=== PATIENT | male | born 1950 ===

== ENCOUNTER 2025-04-02 13:20 | Outpatient (AMB) | payer MEDICARE, OTHER, SELFPAY ==
--- OUTSIDE RECORDS SUMMARY | 2025-03-29 07:40 | XMS_ITS | Encounter Summary ---
Author Organization [facility] Address [address] [place] [address] Care Team Providers Care Customer Supply Chain Analyst Name Role Phone Steve Reid Primary Care Provider [phone] Encounter Details Date Type Department Care Team (Late st Contact Info) Description 03/29/2025 7:40 AM EST Lab Draw Station [address] [address] Benign non-nodular prostatic hyperplasia with lower urinary tract symptoms; Stage 3 chronic kidney disease, unspecified whether stage 3a or 3b CKD (CMS/HCC V24, CMS/HCC V28); Essential hypertension; Parkinson's disease without dyskinesia or fluctuating manifestations (CMS/HCC V24, CMS/HCC V28); Other fatigue; Primary insomnia Social History Tobacco Use Types Packs/Day Years Used Date Smoking Tobacco: Never Smokeless Tobacco: Never Alcohol Use Standard Drinks/Week Comments Yes 0 (1 standard drink = 0.6 oz pur e alcohol) Housing Instability Answer Date Recorde d Are you worried that in the next 2 months you may not have stable housing? No 11/08/2024 Food Access & Nutrition Answer Date Rec orded Do you have access to a vari ety of food including fruits and vegetables? Yes 11/08/2024 Access to Healthcare Answer Date Record ed Within the last 3 months, ho w many times did you visit the emergency department for your medical care? 0 11/08/2024 Health Literacy Answer Date Recorded How often do you need to hav e someone help you when you read instructions, pamphlets, or other written material from your doctor or pharmacy? Never 11/08/2024 Caregiver: How often do you need to have someone help you when you read instructions, pamphlets, or other written material from your doctor or pharmacy? Not on file 11/08/2024 Financial Risk Answer Date Recorded How hard is it for you to pa y for the very basics like food, housing, medical care, and air conditioning / heating? Patient declined 11/08/2024 Transportation Answer Date Recorded Has the lack of transportati on kept you from meetings, work, or from getting things needed for daily living? No Has the lack of transportati on kept you from medical appointments or from getting medications? No 11/08/2024 Social Isolation Answer Date Recorded How often do you feel lonely or isolated from th ose around you? Never 11/08/2024 Food Risk Answer Date Recorded Within the past 12 months we worried whether our food would run out before we got money to buy more. Never true 11/08/2024 Within the past 12 months th e food we bought just didn't last and we didn't have money to get more. Never true 11/08/2024 Dependent Care Answer Date Recorded Do you need help finding or paying for care for your loved ones. For example, child welfare worker or elderly care for an older adult? No 11/08/2024 Education Answer Date Recorded Do you think completing more education or training, like finishing a GED, going to college, or learning a trade, would be helpful for you? N/A 11/08/2024 Employment and Income Answer Date Recor ded During the last four weeks, have you been actively looking for work? No 11/08/2024 Living Situation Answer Date Recorded What is your living situation? Unrecognized valu e 11/08/2024 Sex and Gender Information Value Date Recorded Sex Assigned at Not on file Legal Sex Male 7:11 AM EST Gender Identity Not on file Sexual Orientation Not on file documented as of this encounter Plan of Treatment Upcoming Encounters Date Type Department Care Team (Late st Contact Info) Description 04/03/2025 10:45 AM EST Office Visit Adult Medicine [address] [address] Steve Reid PA [address] [place] [address] 03/28/2026 2:30 PM EST Office Visit Nephrology [facility] [place] [facility] [address] [place] [address] Martin England MD [address] [address] documented as of this encounter Procedures Procedure Name Priority Date/Time Associated Diagnosis Comments URINALYSIS WITH REFLEX MICROSCOPIC Routine 03/29/2025 7:46 AM EST Benign non-nodular prostatic hyperplasia with lower urinary tract symptoms Stage 3 chronic kidney disease, unspecified whether stage 3a or 3b CKD (CMS/HCC V24, CMS/HCC V28) Essential hypertension Parkinson's disease without dyskinesia or fluctuating manifestations (CMS/HCC V24, CMS/HCC V28) Other fatigue Primary insomnia THYROID STIMULATING HORMONE WITH REFLEX TO FREE T4 AND FREE T3 Routine 03/29/2025 7:46 AM EST Benign non-nodular prostatic hyperplasia with lower urinary tract symptoms Stage 3 chronic kidney disease, unspecified whether stage 3a or 3b CKD (CMS/HCC V24, CMS/HCC V28) Essential hypertension Parkinson's disease without dyskinesia or fluctuating manifestations (CMS/HCC V24, CMS/HCC V28) Other fatigue Primary insomnia URINALYSIS WITH REFLEX MICROSCOPIC Routine 03/29/2025 7:46 AM EST Benign non-nodular prostatic hyperplasia with lower urinary tract symptoms Stage 3 chronic kidney disease, unspecified whether stage 3a or 3b CKD (CMS/HCC V24, CMS/HCC V28) Essential hypertension Parkinson's disease without dyskinesia or fluctuating manifestations (CMS/HCC V24, CMS/HCC V28) Other fatigue Primary insomnia PROSTATE SPECIFIC ANTIGEN DIAGNOSTIC Routine 03/29/2025 7:46 AM EST Benign non-nodular prostatic hyperplasia with lower urinary tract symptoms Stage 3 chronic kidney disease, unspecified whether stage 3a or 3b CKD (CMS/HCC V24, CMS/HCC V28) Essential hypertension Parkinson's disease without dyskinesia or fluctuating manifestations (CMS/HCC V24, CMS/HCC V28) Other fatigue Primary insomnia CBC WITH AUTO DIFFERENTIAL Routine 03/29/2025 7:46 AM EST Benign non-nodular prostatic hyperplasia with lower urinary tract symptoms Stage 3 chronic kidney disease, unspecified whether stage 3a or 3b CKD ([facility] V24, [facility] V28) Essential hypertension Parkinson's disease without dyskinesia or fluctuating manifestations ([facility] V24, [facility] V28) Other fatigue Primary insomnia CBC AND DIFFERENTIAL Routine 03/29/2025 7:46 AM EST Benign non-nodular prostatic hyperplasia with lower urinary tract symptoms Stage 3 chronic kidney disease, unspecified whether stage 3a or 3b CKD ([facility] V24, [facility] V28) Essential hypertension Parkinson's disease without dyskinesia or fluctuating manifestations ([facility] V24, [facility] V28) Other fatigue Primary insomnia documented in this encounter Results * (ABNORMAL) Urinalysis with reflex microscopic (03/29/2025 7:46 AM EST) Specific [place] Urine 1.020 1.003 - 1.030 LAB URINALYSIS - AUTOMATED METHOD 03/29/2025 10:20 AM [facility] pH, Urine 5.5 5.0 - 8.0 pH LAB URINALYSIS - AUTOMATED METHOD 03/29/2025 10:20 AM [facility] Leukocytes, Urine Negative Negative LAB URINALYSIS - AUTOMATED METHOD 03/29/2025 10:20 AM [facility] Nitrite, Urine Negative Negative LAB URINALYSIS - AUTOMATED METHOD 03/29/2025 10:20 AM [facility] Protein, Urine Negative <=Trace mg/dL LAB URINALYSIS - AUTOMATED METHOD 03/29/2025 10:20 AM [facility] Glucose, Urine Negative Negative mg/dL LAB URINALYSIS - AUTOMATED METHOD 03/29/2025 10:20 AM [facility] Ketones, Urine Trace(A) Negative mg/dL LAB URINALYSIS - AUTOMATED METHOD 03/29/2025 10:20 AM [facility] Urobilinogen, Urine 0.2 0.2 - 1.0 mg/dL LAB URINALYSIS - AUTOMATED METHOD 03/29/2025 10:20 AM [facility] Bilirubin, Urine Negative Negative LAB URINALYSIS - AUTOMATED METHOD 03/29/2025 10:20 AM [facility] Blood, Urine Negative Negative LAB URINALYSIS - AUTOMATED METHOD 03/29/2025 10:20 AM [facility] Urine Urine specimen obtained by clean catch procedure / Unknown Non-blood Collection / Unknown 03/29/2025 7:46 AM EST 03/29/2025 7:46 AM EST Steve ZAVALA LAB URINE ORDERABLES Lucinda ferreira Result [facility] [address] [place] [address], * (ABNORMAL) CBC auto differential (03/29/2025 7:46 AM EST) WBC 10.3 4.8 - 10.8 K/mcL LAB HEMETOLOGY METHOD 03/29/2025 10:29 AM [facility] RBC 4.90 4.50 - 5.50 M/[facility] LAB HEMETOLOGY METHOD 03/29/2025 10:29 AM [facility] Hemoglobin 14.4 13.5 - 17.5 g/dL LAB HEMETOLOGY METHOD 03/29/2025 10:29 AM [facility] Hematocrit 45.4 42.0 - 54.0 % LAB HEMETOLOGY METHOD 03/29/2025 10:29 AM [facility] MCV 91.9 79.0 - 98.0 FL LAB HEMETOLOGY METHOD 03/29/2025 10:29 AM [facility] MCH 29.1 27.0 - 32.0 pcg LAB HEMETOLOGY METHOD 03/29/2025 10:29 AM [facility] MCHC 31.7(L) 32.0 - 37.0 g/dL LAB HEMETOLOGY METHOD 03/29/2025 10:29 AM [facility] RDW 13.5 11.0 - 15.0 % LAB HEMETOLOGY METHOD 03/29/2025 10:29 AM [facility] Platelets 371 130 - 400 K/mcL LAB HEMETOLOGY METHOD 03/29/2025 10:29 AM [facility] MPV 9.2 7.0 - 11.0 FL LAB HEMETOLOGY METHOD 03/29/2025 10:29 AM [facility] NRBC 0.0 <1.0 % LAB HEMETOLOGY METHOD 03/29/2025 10:29 AM [facility] NRBC Absolute 0.00 <0.10 K/mcL LAB HEMETOLOGY METHOD 03/29/2025 10:29 AM [facility] Neutrophils Relative 52.0 % LAB HEMETOLOGY METHOD 03/29/2025 10:29 AM [facility] Lymphocytes Relative 34.0 % LAB HEMETOLOGY METHOD 03/29/2025 10:29 AM [facility] Monocytes Relative 8.1 % LAB HEMETOLOGY METHOD 03/29/2025 10:29 AM [facility] Eosinophils Relative 4.3 % LAB HEMETOLOGY METHOD 03/29/2025 10:29 AM [facility] Basophils Relative 1.0 % LAB HEMETOLOGY METHOD 03/29/2025 10:29 AM [facility] Immature Granulocytes Relative 0.6 % LAB HEMETOLOGY METHOD 03/29/2025 10:29 AM [facility] Neutrophils Absolute 5.38 1.50 - 7.00 K/mcL LAB HEMETOLOGY METHOD 03/29/2025 10:29 AM [facility] Lymphocytes Absolute 3.52 1.00 - 5.00 K/mcL LAB HEMETOLOGY METHOD 03/29/2025 10:29 AM EST [facility] Monocytes Absolute 0.84 0.20 - 1.00 K/[facility] LAB HEMETOLOGY METHOD 03/29/2025 10:29 AM EST [facility] Eosinophils Absolute 0.44 0.00 - 0.50 K/mcL LAB HEMETOLOGY METHOD 03/29/2025 10:29 AM EST [facility] Basophils Absolute 0.10 0.00 - 0.20 K/[facility] LAB HEMETOLOGY METHOD 03/29/2025 10:29 AM EST [facility] Immature Granulocytes Absolute 0.06(H) 0.00 - 0.03 K/[facility] LAB HEMETOLOGY METHOD 03/29/2025 10:29 AM EST [facility] Blood Venous blood specimen / Unknown Venipuncture / Unknown 03/29/2025 7:46 AM EST 03/29/2025 7:46 AM EST Steve ZAVALA LAB BLOOD ORDERABLES Lucinda l Result [facility] [address] [place] [address], * Prostate specific antigen diagnostic (03/29/2025 7:46 AM EST) PSA 2.25 0.00 - 4.00 ng/mL LAB CHEMISTRY METHOD 03/29/2025 10:44 AM EST [facility] Blood Venous blood specimen / Unknown Venipuncture / Unknown 03/29/2025 7:46 AM EST 03/29/2025 7:46 AM EST Narrative [facility] - 03/29/2025 10:44 AM EST The Siemens Advia Centaur Chemiluminescent Immunoassay is used. Results obtained with different assay methods or kits cannot be used interchangeably. Results cannot be interpreted as absolute evidence of the presence or absence of malignant disease. Steve ZAVALA LAB BLOOD ORDERABLES Lucinda l Result Performing Organization Address City/[facility]/ZIP Co de Phone Number [facility] [address] [place] [address], [place] [phone] * Thyroid stimulating hormone with reflex to free t4 and free t3 (03/29/2025 7:46 AM EST) TSH 1.25 0.40 - 4.00 mcIU/mL LAB CHEMISTRY METHOD 03/29/2025 10:53 AM EST [facility] Blood Venous blood specimen / Unknown Venipuncture / Unknown 03/29/2025 7:46 AM EST 03/29/2025 7:46 AM EST Steve ZAVALA LAB BLOOD ORDERABLES Lucinda l Result Performing Organization Address [facility]/ZIP Co de Phone Number [facility] [address] [place] [address], [place] [phone] documented in this encounter Visit Diagnoses Diagnosis Benign non-nodular prostatic hyperplasia with lower urinary tract symptoms Stage 3 chronic kidney disease, unspecified whether stage 3a or 3b CKD (CMS/HCC V24, [facility]/HCC V28) Essential hypertension Unspecified essential hypertension Parkinson's disease without dyskinesia or fluctuating manifestations (CMS/HCC V24, CMS/[facility] V28) Other fatigue Primary insomnia Persistent disorder of initiating or maintaining sleep documented in this encounter Orders Lab Orders Without Results Count Last Ordered D ate First Ordered Date CULTURE URINE 1 03/29/2025 documented in this encounter Additional Health Concerns Assessment Noted Time PHQ-9 Depression Total Score: 0 11/09/19 1:33 PM EDT A fall risk assessment has been complete d for the patient 11/08/2024 1:33 PM EDT documented as of this encounter Care Teams Customer Supply Chain Analyst Relationship Specialty Start Date End Date Steve Reid PA [address] [place] [id number] PCP - General Internal Medicine 05/05/24 documented as of this encounter
--- NOTE | 2025-04-02 13:23 | A.OFFVIS_ITS ---
Intake Visit Reasons: 6MPD HPI Comments Details: 74 years old man with Parkinson's disease. He initially was seen in 2018 when he presented with bilateral hand tremor, difficulty with dressing and undressing, loss of dexterity, and difficulty using hand for different tasks. He is presenting with presenting with Parkinson's Disease management and insomnia. He reports ongoing management of Parkinson's Disease with Carbidopa- Levodopa and Pramipexole, taking these medications thrice daily. Recent complications include increased salivation, which is common in Parkinson's but problematic for the patient. He's interested in potential treatment options, aware of side effects like dryness, especially problematic during colder months. He also reports insomnia, marked by difficulty maintaining sleep and some daytime somnolence, influenced by reduced outdoor activity in colder weather. He possesses a treadmill and has been advised to increase physical activity to improve his sleep pattern. His physical condition reflects both age-related influences and the impact of Parkinson's, with reduced mold bunch trimmer strength potentially further affected by lack of specific exercises. Additionally, the patient has undergone dental extractions, but these seem unrelated to his current medical concerns. Review of Systems Narrative - Nervous System: Reports excessive salivation related to Parkinson's Disease. - Psychiatric: Reports insomnia, characterized by difficulty staying asleep and occasional daytime sleepiness. - Musculoskeletal: Reports diminished mold bunch trimmer strength. Denies regular exercise specific to improving mold bunch trimmer. - General: Denies any new medical symptoms aside from what is related to Parkinson's Disease. Assessment & Plan Assessment & Plan (1) Parkinson disease: Comment: MRI brain WO at in October 2017: mod MVD. Code(s): G20 - Parkinson's disease Category: Medical Qualifiers: Dyskinesia presence: without dyskinesia Fluctuating manifestations: without fluctuating manifestations Qualified Code(s): G20.A1 - Parkinson's disease without dyskinesia, without mention of fluctuations (2) Drooling: Code(s): K11.7 - Disturbances of salivary secretion Category: Medical Plan Impression: 1. Parkinson's disease 2. Drooling related to Parkinson's Recommendations: 1. Carbidopa/levodopa 25/100, 1 tablet 3 times a day 2. Pramipexole 0.25 mg 1 tablet 3 times a day 3. Amantadine 100 mg 1 tablet twice a day 4. Glycopyrrolate 1 mg 1 tablet a day for drooling 5. Regular walking type of exercise Medications: New carbidopa-levodopa 25-100 mg (Sinemet) 1 tab PO TID 270 tabs 1RF amantadine HCl 100 mg PO BID 180 tabs 1RF glycopyrrolate 1 mg PO ONCE PRN 90 tabs 0RF secretions Refilled pramipexole 0.25 mg PO TID 270 tabs 1RF Coding Level of Care Code Est Pt Level 4 (06378) Global (91799) Diagnoses Parkinson's disease without dyskinesia or fluctuating manifestations G20.A1 Dyskinesia presence: without dyskinesia Fluctuating manifestations: without fluctuating manifestations Drooling K11.7
--- OUTSIDE RECORDS SUMMARY | 2025-04-03 02:16 | XMS_ITS | Clinical Summary ---
Author Organization [facility] Address [address] [place] [phone] Phone Care Team Providers Care Extension Associate Name Role Phone Steve Reid Primary Care Provider [phone] Allergies No known active allergies Medications amantadine (SYMMETREL) 100 mg tablet TAKE 1 TABLET BY MOUTH TWICE A DAY FOR 30 DAYS 4 Active pramipexole (MIRAPEX) 0.125 mg tablet Take 1 tablet (0.125 mg total) by mouth 3 (three) times a day. Active aspirin 81 mg EC tablet Take 1 tablet (81 mg total) by mouth 1 (one) time each day. Active carbidopa-levo dopa (SINEMET) 25-100 mg per tablet Take 1 tablet by mouth 3 (three) times a day. Active MULTIVITAMIN ORAL 1tab daily Active enalapril (Vasotec) 20 mg tablet Take 1 tablet (20 mg total) by mouth 1 (one) time each day. 90 each 3 4 Active doxepin (SILENOR) 3 mg tablet tablet Take 1 tablet (3 mg total) by mouth at bedtime as needed (insomnia). 30 tablet 5 5 Active alfuzosin (UROXATRAL) 10 mg 24 hr tablet TAKE 1 TABLET BY MOUTH EVERY DAY 90 tablet 1 5 Active amLODIPine (NORVASC) 2.5 mg tablet TAKE 1 TABLET BY MOUTH 1 TIME EACH DAY. 90 tablet 5 Active amLODIPine (NORVASC) 2.5 mg tablet Take 1 tablet (2.5 mg total) by mouth 1 (one) time each day. 90 tablet 03/27/20 25 Discontinued Active Problems Problem Noted Date Diagnosed Date CKD (chronic kidney disease) stage 3, GFR 30-59 ml/min [place] [place] [facility] V28) 05/24/2020 Parkinson disease [place] [place] [facility] [place] Essential hypertension 06/04/2017 Benign non-nodular prostatic hyperplasia with lower urinary tract symptoms 02/06/2016 Diverticulitis of colon without hemorrhage 04/16 Overview (02/10/2024): Incidental finding at colonoscopy 04/16/2009. Encounters Date Type Department Care Team Description 03/29/2025 7:40 AM EST Lab Draw Station - [address] Benign non-nodular prostatic hyperplasia with lower urinary tract symptoms; Stage 3 chronic kidney disease, unspecified whether stage 3a or 3b CKD [place] [place] [facility] [place] Essential hypertension; Parkinson's disease without dyskinesia or fluctuating manifestations ([facility] [place], [facility] [place] Other fatigue; Primary insomnia 03/15/2025 1:15 PM EDT Office Visit Nephrology - [address] [phone] Martin England MD Stage 3 chronic kidney disease, unspecified whether stage 3a or 3b CKD ([facility] [place] [facility] [place] (Primary Dx); Essential hypertension from Last 3 Months Immunizations Immunization Administration Dates Next Due Influenza trivalent, 0.5mL ( Fluzone High-dose) 65yo and older 02/16/2024,02/25/2023,03/02/2022,02/26,02/21/2020,02/10/2018,03/04/2017 ,02/06/2016 Influenza trivalent, with pr eservative (Fluzone; Afluria) 6mo and older 03/26/2015,03/20/2014,02/24/2013,02/04,03/03/2011,04/02/2010,03/22/2008 ,03/08/2007,2005 Moderna Covid-19 Bivalent, O riginal + Ba.1 (Non-US Tradename Spikevax Bivalent) 01/30/2022 Pneumococcal conjugate 13 va lent (Prevnar 13, PCV13) 2mo and older 02/06/2016 Pneumococcal polysaccharide 23 valent (Pneumovax 23) 2yo and older 03/04/2017 Td Tetanus diptheria (Tdvax) 7yo and older 08/09/2017 Tdap Tetanus diptheria acell ular pertussis (Boostrix; Adacel) 7yo and older 03/08/2007 Zoster Live 12/07/2012 Zoster recombinant (Shingrix ) 19yo and older 07/07/2023,01/14/2023 Surgical History Surgery Date Site/Laterality Comments COLONOSCOPY 04/16/2009 PROCEDURE: UT COLONOSCOPY FLX DX W/COLLJ SPEC WHEN PFRMD; COMMENT: minimal diverticulosis TONSILLECTOMY PROCEDURE: HISTORICAL TONSILLECTOMY CATARACT EXTRACTION Right PROCEDURE: HISTORICAL CATARACT REMOVAL COLONOSCOPY 11/10/2016 PROCEDURE: HISTORICAL COLONOSCOPY Medical History Medical History Date Comments Diverticulosis of colon (wit armani mention of hemorrhage) 04/16/2009 DX:Diverticulosis of colon ( without mention of hemorrhage) Special screening for malign ant neoplasms, colon 04/16/2009 DX:Special screening for mal ignant neoplasms, colon Family History Medical History Relation Name Comments Hypertension Father Other: rheumatic heart disease Mother Other: Other Sister healthy Relation Name Status Comments Daughter Alive dm Father (Age 89) htn, lung problems related to occupational exposure Maternal Grandmother (Age 95) de mentia Mother (Age 50's) rheumati c heart disease Sister Alive Social History Tobacco Use Types Packs/Day Years Used Date Smoking Tobacco: Never Smokeless Tobacco: Never Tobacco Cessation:Counseling Given: Not Answered Alcohol Use Standard Drinks/Week Comments Yes 0 [...] care for your loved ones. For example, manager child or elderly care for an older adult? [...] on file Sexual Orientation Not on file Obstetrics History Last Filed Vital Signs Vital Sign Reading Time Taken Comments Blood Pressure 123/62 03/15/2025 1:19 PM EDT Pulse 81 03/15/2025 1:19 PM EDT Temperature 36.2 C (97.2 F) 11/08/2024 1:34 PM EDT Respiratory Rate 13 11/08/2024 1:34 PM EDT Oxygen Saturation - - Inhaled Oxygen Concentration - - Weight 74.4 kg (164 lb) 03/15/2025 1:19 PM EDT Height 167.6 cm (5' 6 ) 11/08/2024 1:34 PM EDT Body Mass Index 26.47 11/08/2024 1:34 PM EDT Plan of Treatment Upcoming Encounters Date Type Department Care Team (Late st Contact Info) Description 04/03/2025 10:45 AM EST Office Visit Adult Medicine East - [address] [phone] Steve Reid PA [address] [place] [phone] 03/28/2026 2:30 PM EST Office Visit Nephrology - [address] [phone] Martin England MD [address] [phone] Health Maintenance Due Date Last Done Comments Medicare Annual Wellness Visit 04/25/2022 RSV Immunization Adult Patients (1 - 1-dose 75+ series) 2025 COVID-19 Vaccine (8 - Moderna risk season) 2025 03/07/2025, 03/30/2024, 03/18/2023, Additional history exists Falls Risk Assessment 11/08/2025 11/08/2024 Social Influencers of Health Screening 11/08/2025 11/08/2024 Hypertension/CHF/CAD Annual BMP Blood Test 03/07/2026 03/07/2025, 08/29/2024, 12/03/2023, Additional history exists DTaP,Tdap,and Td Vaccines (3 - Td or Tdap) 08/10/2027 08/09/2017, 03/08/2007 Colorectal Cancer Screening: Colonoscopy 06/27/2029 06/27/2019 Cholesterol Screening (Lipid Panel) 08/29/2029 08/29/2024, 12/03/2023, 12/03/2023 Hepatitis C Screening Completed 02/24/2013 Pneumococcal Vaccine: 50+ Years Completed 03/04/2017, 02/06/2016 Zoster Vaccines Completed 07/07/2023, 12/17, 12/07/2012 Depression Screening Completed 11/08/2024, 03/15/20 23 Influenza Vaccine Completed 02/14/2025, , 02/25/2023, Additional history exists HIB Vaccines Aged Out No longer eligi ble based on patient's age to complete this topic HPV Vaccines Aged Out No longer eligi ble based on patient's age to complete this topic Hepatitis A Vaccines Aged Out No long er eligible based on patient's age to complete this topic Hepatitis B Vaccines Aged Out No long er eligible based on patient's age to complete this topic IPV Vaccines Aged Out No longer eligi ble based on patient's age to complete this topic MMR Vaccines Aged Out No longer eligi ble based on patient's age to complete this topic Meningococcal ACWY Vaccine Aged Out N o longer eligible based on patient's age to complete this topic Meningococcal B Vaccine Aged Out No l onger eligible based on patient's age to complete this topic RSV Immunization Patients Under 20 months Aged Out No longer eligible based on patient's age to complete this topic Varicella Vaccines Aged Out No longer eligible based on patient's age to complete this topic Procedures Procedure Name Priority Date/Time Associated Diagnosis [...] CMS/HCC V28) Other fatigue Primary insomnia CBC AND [...] V24, CMS/HCC V28) Other fatigue Primary insomnia BASIC METABOLIC PANEL Routine 03/07/2025 9:41 AM EDT Stage 3 chronic kidney disease, unspecified whether stage 3a or 3b CKD (CMS/HCC V24, CMS/HCC V28) MICROALBUMIN CREATININE URINE RATIO Routine 03/07/2025 9:41 AM EDT Stage 3 chronic kidney disease, unspecified whether stage 3a or 3b CKD (CMS/HCC V24, CMS/HCC V28) PARATHYROID HORMONE INTACT Routine 03/07/2025 9:41 AM EDT Stage 3 chronic kidney disease, unspecified whether stage 3a or 3b CKD ([facility] V24, [facility] V28) VITAMIN D 25 HYDROXY Routine 03/07/2025 9:41 AM EDT Stage 3 chronic kidney disease, unspecified whether stage 3a or 3b CKD ([facility] V24, [facility] V28) LIPID PANEL WITH REFLEX TO DIRECT LDL Routine 08/29/2024 8:33 AM EDT Benign non-nodular prostatic hyperplasia with lower urinary tract symptoms Stage 3 chronic kidney disease, unspecified whether stage 3a or 3b CKD ([facility] V24, [facility] V28) Essential hypertension Parkinson's disease without dyskinesia, unspecified whether manifestations fluctuate ([facility] V24, [facility] V28) DEPRESSION SCREENING Routine 03/15/2023 COLONOSCOPY Routine 06/27/2019 HEPATITIS C SCREENING Routine 02/24/2013 from Last 3 Months or Most Recently Relevant to Health Maintenance Results * (ABNORMAL) Urinalysis with reflex microscopic (03/29/2025 7:46 AM EST) Specific [place] Urine 1.020 1.003 - 1.030 LAB URINALYSIS - AUTOMATED METHOD 03/29/2025 10:20 AM [facility] pH, Urine 5.5 5.0 - 8.0 pH LAB URINALYSIS - AUTOMATED METHOD 03/29/2025 10:20 AM [facility] Leukocytes, Urine Negative Negative LAB URINALYSIS - AUTOMATED METHOD 03/29/2025 10:20 AM [facility] Nitrite, Urine Negative Negative LAB URINALYSIS - AUTOMATED METHOD 03/29/2025 10:20 AM [facility] Protein, Urine Negative <=Trace mg/dL LAB URINALYSIS - AUTOMATED METHOD 03/29/2025 10:20 AM [facility] Glucose, Urine Negative Negative mg/dL LAB URINALYSIS - AUTOMATED METHOD 03/29/2025 10:20 AM [facility] Ketones, Urine Trace(A) Negative mg/dL LAB URINALYSIS - AUTOMATED METHOD 03/29/2025 10:20 AM [facility] Urobilinogen, Urine 0.2 0.2 - 1.0 mg/dL LAB URINALYSIS - AUTOMATED METHOD 03/29/2025 10:20 AM [facility] Bilirubin, Urine Negative Negative LAB URINALYSIS - AUTOMATED METHOD 03/29/2025 10:20 AM [facility] Blood, Urine Negative Negative LAB URINALYSIS - AUTOMATED METHOD 03/29/2025 10:20 AM [facility] Urine Urine specimen obtained by clean catch procedure / Unknown Non-blood Collection / Unknown 03/29/2025 7:46 AM EST 03/29/2025 7:46 AM EST Steve ZAVALA LAB URINE ORDERABLES Lucinda l Result Performing Organization Address City/[facility]/ZIP Co de Phone Number [facility] [address] [place] [address], * Thyroid stimulating hormone with reflex to free t4 and free t3 (03/29/2025 7:46 AM EST) TSH 1.25 0.40 - 4.00 mcIU/mL LAB CHEMISTRY METHOD 03/29/2025 10:53 AM EST [facility] Blood Venous blood specimen / Unknown Venipuncture / Unknown 03/29/2025 7:46 AM EST 03/29/2025 7:46 AM EST Steve ZAVALA LAB BLOOD ORDERABLES Lucinda l Result [facility] [address] [place] [address], * Prostate specific antigen diagnostic (03/29/2025 7:46 AM EST) [facility] PSA 2.25 0.00 - 4.00 ng/mL LAB CHEMISTRY METHOD 03/29/2025 10:44 AM EST [facility] Blood Venous blood specimen / Unknown Venipuncture / Unknown 03/29/2025 7:46 AM EST 03/29/2025 7:46 AM EST Narrative [facility] - 03/29/2025 10:44 AM EST The Siemens Advia ithinksportaur Chemiluminescent Immunoassay is used. Results obtained with different assay methods or kits cannot be used interchangeably. Results cannot be interpreted as absolute evidence of the presence or absence of malignant disease. Steve ZAVALA LAB BLOOD ORDERABLES Lucinda ferreira Result [facility] [address] [place] [address], * (ABNORMAL) CBC auto differential (03/29/2025 7:46 AM EST) [facility] WBC 10.3 4.8 - 10.8 K/mcL LAB HEMETOLOGY METHOD 03/29/2025 10:29 AM EST [facility] RBC 4.90 4.50 - 5.50 M/mcL LAB HEMETOLOGY METHOD 03/29/2025 10:29 AM EST [facility] Hemoglobin 14.4 13.5 - 17.5 g/dL LAB HEMETOLOGY METHOD 03/29/2025 10:29 AM [facility] Hematocrit 45.4 42.0 - 54.0 % LAB HEMETOLOGY METHOD 03/29/2025 10:29 AM EST [facility] MCV 91.9 79.0 - 98.0 FL LAB HEMETOLOGY METHOD 03/29/2025 10:29 AM [facility] MCH 29.1 27.0 - 32.0 pcg LAB HEMETOLOGY METHOD 03/29/2025 10:29 AM [facility] MCHC 31.7(L) 32.0 - 37.0 g/dL LAB HEMETOLOGY METHOD 03/29/2025 10:29 AM [facility] RDW 13.5 11.0 - 15.0 % LAB HEMETOLOGY METHOD 03/29/2025 10:29 AM [facility] Platelets 371 130 - 400 K/mcL LAB HEMETOLOGY METHOD 03/29/2025 10:29 AM [facility] MPV 9.2 7.0 - 11.0 FL LAB HEMETOLOGY METHOD 03/29/2025 10:29 AM [facility] NRBC 0.0 <1.0 % LAB HEMETOLOGY METHOD 03/29/2025 10:29 AM [facility] NRBC Absolute 0.00 <0.10 K/mcL LAB HEMETOLOGY METHOD 03/29/2025 10:29 AM [facility] Neutrophils Relative 52.0 % LAB HEMETOLOGY METHOD 03/29/2025 10:29 AM [facility] Lymphocytes Relative 34.0 % LAB HEMETOLOGY METHOD 03/29/2025 10:29 AM [facility] Monocytes Relative 8.1 % LAB HEMETOLOGY METHOD 03/29/2025 10:29 AM [facility] Eosinophils Relative 4.3 % LAB HEMETOLOGY METHOD 03/29/2025 10:29 AM [facility] Basophils Relative 1.0 % LAB HEMETOLOGY METHOD 03/29/2025 10:29 AM [facility] Immature Granulocytes Relative 0.6 % LAB HEMETOLOGY METHOD 03/29/2025 10:29 AM [facility] Neutrophils Absolute 5.38 1.50 - 7.00 K/mcL LAB HEMETOLOGY METHOD 03/29/2025 10:29 AM EST [facility] Lymphocytes Absolute 3.52 1.00 - 5.00 K/mcL LAB HEMETOLOGY METHOD 03/29/2025 10:29 AM EST [facility] Monocytes Absolute 0.84 0.20 - 1.00 K/mcL LAB HEMETOLOGY METHOD 03/29/2025 10:29 AM EST [facility] Eosinophils Absolute 0.44 0.00 - 0.50 K/mcL LAB HEMETOLOGY METHOD 03/29/2025 10:29 AM EST [facility] Basophils Absolute 0.10 0.00 - 0.20 K/mcL LAB HEMETOLOGY METHOD 03/29/2025 10:29 AM [facility] Immature Granulocytes Absolute 0.06(H) 0.00 - 0.03 K/mcL LAB HEMETOLOGY METHOD 03/29/2025 10:29 AM [facility] Blood Venous blood specimen / Unknown Venipuncture / Unknown 03/29/2025 7:46 AM EST 03/29/2025 7:46 AM EST Steve ZAVALA LAB BLOOD ORDERABLES Lucinda l Result [facility] [address] [place] [address], * Microalbumin creatinine urine ratio (03/07/2025 9:41 AM EDT) Creatinine, Urine 121.0 mg/dL LAB CHEMISTRY METHOD 03/07/2025 1:47 PM EDT [facility] Microalb, Ur 5.6 0.0 - 29.0 mg/L LAB CHEMISTRY METHOD 03/07/2025 1:47 PM EDT [facility] Microalb/Creat Ratio 5 <30 mg/g creat LAB CHEMISTRY METHOD 03/07/2025 1:47 PM EDT [facility] Urine Urine specimen obtained by clean catch procedure / Unknown Non-blood Collection / Unknown 03/07/2025 9:41 AM EDT 03/07/2025 9:41 AM EDT us Martin England MD LAB URINE ORDERABLES Final Res ult Performing Organization Address [facility] Co de Phone Number [facility] [address] [place] [address], [place] [phone] * Vitamin D 25 hydroxy (03/07/2025 9:41 AM EDT) Vit D, 25-Hydroxy 34.9 30.0 - 80.0 ng/mL LAB CHEMISTRY METHOD 03/07/2025 1:42 PM EDT [facility] Blood Venous blood specimen / Unknown Venipuncture / Unknown 03/07/2025 9:41 AM EDT 03/07/2025 9:41 AM EDT us Martin England MD LAB BLOOD ORDERABLES Final Res ult Performing Organization Address [facility] de Phone Number [facility] [address] [place] [address], [place] [phone] * Parathyroid hormone intact (03/07/2025 9:41 AM EDT) PTH 31.5 18.5 - 88.0 pcg/mL LAB CHEMISTRY METHOD 03/07/2025 1:42 PM EDT [facility] Blood Venous blood specimen / Unknown Venipuncture / Unknown 03/07/2025 9:41 AM EDT 03/07/2025 9:41 AM EDT us Martin England MD LAB BLOOD ORDERABLES Final Res ult Performing Organization Address City/[facility]/ZIP Co de Phone Number [facility] [address] [place] [address], * (ABNORMAL) Basic metabolic panel (03/07/2025 9:41 AM EDT) Sodium 140 133 - 145 mmol/L LAB CHEMISTRY METHOD [facility] Potassium 4.5 3.5 - 5.5 mmol/L LAB CHEMISTRY METHOD 03/07/2025 12:58 PM [facility] Chloride 105 96 - 110 mmol/L LAB CHEMISTRY METHOD 03/07/2025 12:58 PM [facility] CO2 30 21 - 32 mmol/L LAB CHEMISTRY METHOD 03/07/2025 12:58 PM [facility] Anion Gap 5 3 - 11 LAB CHEMISTRY METHOD 03/07/2025 12:58 PM [facility] Glucose 100 70 - 100 mg/dL LAB CHEMISTRY METHOD 03/07/2025 12:58 PM [facility] BUN 29(H) 5 - 25 mg/dL LAB CHEMISTRY METHOD 03/07/2025 12:58 PM [facility] Creatinine 1.58(H) 0.70 - 1.30 mg/dL LAB CHEMISTRY METHOD 03/07/2025 12:58 PM [facility] eGFR 46(L) >=60 mL/min/1. 73m2 LAB CHEMISTRY METHOD 03/07/2025 12:58 PM [facility] Comment:Calculation based on the Chronic Kidney Disease Epidemiology Collaboration (CKD-EPI) equation refit without adjustment for race. BUN/Creatinine Ratio 18.4 LAB CHEMISTRY METHOD 03/07/2025 12:58 PM [facility] Calcium 9.1 8.5 - 10.5 mg/dL LAB CHEMISTRY METHOD 03/07/2025 12:58 PM [facility] Blood Venous blood specimen / Unknown Venipuncture / Unknown 03/07/2025 9:41 AM EDT 03/07/2025 9:41 AM EDT Martin England MD LAB BLOOD ORDERABLES Final Res ult [facility] [address] [place] [address], [place] [phone] * Lipid panel with reflex to direct LDL (08/29/2024 8:33 AM EDT) Cholesterol 126 0 - 200 mg/dL LAB CHEMISTRY METHOD 08/29/2024 11:06 AM EDT [facility] Triglycerides 68 0 - 150 mg/dL LAB CHEMISTRY METHOD 08/29/2024 11:06 AM T [facility] HDL 42 >=40 mg/dL LAB CHEMISTRY METHOD 08/29/2024 11:06 AM T [facility] LDL Calculated 70 0 - 100 mg/dL LAB CHEMISTRY METHOD 08/29/2024 11:06 AM EDT [facility] VLDL Cholesterol Praveen 13.6 mg/dL LAB CHEMISTRY METHOD 08/29/2024 11:06 AM T [facility] Non HDL Chol. (LDL+VLDL) 84 <145 mg/dL LAB CHEMISTRY METHOD 08/29/2024 11:06 AM EDT [facility] Chol/HDL Ratio 3.0 0.0 - 4.4 LAB CHEMISTRY METHOD 08/29/2024 11:06 AM T [facility] Blood Venous blood specimen / Unknown Venipuncture / Unknown 08/29/2024 8:33 AM EDT 08/29/2024 8:33 AM EDT Steve ZAVALA LAB BLOOD ORDERABLES Lucinda l Result Performing Organization Address City/[facility]/ZIP Co de Phone Number [facility] [address] [place] [address], * Depression Screening (03/15/2023) Depression Screening Abstracted Historical Provider HEALTH MAINTENANCE Final Result * Colonoscopy (06/27/2019) Colonoscopy No Interpretation , Abstracted Comment:External Completion - no further colonoscopies Anatomical Region Laterality Modality Other Historical Provider HEALTH MAINTENANCE Final Result * Hepatitis C Screening (02/24/2013) Hepatitis C Screening Abstracted Historical Provider HEALTH MAINTENANCE Final Result from Last 3 Months or Most Recently Relevant to Health Maintenance Insurance MEDICARE [facility] Care Teams Extension Associate Relationship Specialty Start Date End Date Steve Reid PA [address] [place] [id number] PCP - General Internal Medicine 05/05/24
== END 2025-04-02 13:33 | disposition home or self-care (01) ==
LOC: HO.HSM 13:21
PROVIDERS: PCP Physician Assistant Medical; Referring Provider Internal Medicine; Visit Provider Psychiatry & Neurology Neurology
DX: G20.A1 Parkinson's disease without dyskinesia, without mention of fluctuations (principal); K11.7 Disturbances of salivary secretion
CPT/HCPCS: 99214; G2211

== ENCOUNTER → 2025-04-02 13:20 | Outpatient (BNVA) | payer MEDICARE, OTHER, SELFPAY | PROVIDERS: PCP Physician Assistant Medical; Referring Provider Internal Medicine; Visit Provider Psychiatry & Neurology Neurology | DX: G20.A1 Parkinson's disease without dyskinesia, without mention of fluctuations (principal); K11.7 Disturbances of salivary secretion | CPT/HCPCS: 99212 ==